=== PATIENT | female | born 1995 | race Caucasian/White ===

== ENCOUNTER 2016-10-16 10:50 | Emergency (ER) | payer OTHER ==
[2016-10-16 11:08] VITALS: BP 133/106; PULSE 79; RESP 18; TEMP 98.1; O2SAT 100
[2016-10-16] MEDS ORDERED: Sodium Chloride 0.9% 1,000 ML IV STA (11:19)
--- NOTE | 2016-10-16 11:22 | ED PDOC ---
HPI: Abdomen Time Seen by Provider: 10/16/16 11:11 Chief Complaint (Nursing): Abdominal Pain Chief Complaint (Provider): Epigastric pain History Per: Patient History/Exam Limitations: no limitations Onset/Duration Of Symptoms: Days (few days) Outside of [place] travel?: No Current Symptoms Are (Timing): Gone Now Additional Complaint(s): Pt. with epigastric pain, off and on. No specific trigger. No back pain, dyspnea, fever, weakness. No chest pain. No dysuria. No pain currently. Missed her period this month, concerned if she is preg. No pelvic pain. No nausea, vomit, diarrhea. Feels like a burning pain. Past Medical History Reviewed: Nursing Documentation, Vital Signs Vital Signs: Last Vital Signs Temp 98.1 F 10/16/16 10:54 Pulse 79 10/16/16 10:54 Resp 18 10/16/16 10:54 BP 133/106 H 10/16/16 10:54 Pulse Ox 100 10/16/16 11:26 - Medical History PMH: No Chronic Diseases - Surgical History Surgical History: No Surg Hx - Family History Family History: States: Unknown Family Hx - Immunization History Hx Tetanus Toxoid Vaccination: No Hx Influenza Vaccination: No Hx Pneumococcal Vaccination: No - Home Medications Home Medications: Ambulatory Orders Medication Instructions Recorded Cyclobenzaprine [Cyclobenzaprine 10 mg PO TID #20 tab 02/09/16 HCl] Ibuprofen [Motrin] 600 mg PO Q6 #20 tab 02/09/16 Famotidine [Pepcid] 20 mg PO DAILY PRN #6 tab 10/16/16 - Allergies Allergies/Adverse Reactions: Allergies Allergy/AdvReac Type Severity Reaction Status Date / Time blueberry Allergy RASH Verified 10/16/16 10:54 veronica Allergy RASH Uncoded 10/16/16 10:54 Review of Systems ROS Statement: Except As Marked, All Systems Reviewed And Found Negative Gastrointestinal: Positive for: Abdominal Pain Physical Exam - Reviewed Nursing Documentation Reviewed: Yes Vital Signs Reviewed: Yes - Physical Exam Appears: Positive for: Well, Non-toxic, No Acute Distress Head Exam: Positive for: ATRAUMATIC, NORMAL INSPECTION, NORMOCEPHALIC Skin: Positive for: Normal Color, Warm, DRY ENT: Positive for: Normal ENT Inspection Neck: Positive for: Normal, Painless ROM Cardiovascular/Chest: Positive for: Regular Rate, Rhythm Respiratory: Positive for: Normal Breath Sounds Gastrointestinal/Abdominal: Positive for: Bowel Sounds, Soft, Tenderness ( epigastric mild). Negative for: Distended, Guarding Back: Positive for: Normal Inspection. Negative for: L CVA Tenderness, R CVA Tenderness Extremity: Positive for: Normal ROM. Negative for: Tenderness, Pedal Edema Neurologic/Psych: Positive for: Alert, mud boss II-XII, Oriented. Negative for: Motor/Sensory Deficits - Laboratory Results Result Diagrams: 10/16/16 11:33 10/16/16 11:33 Interpretation Of Abn Labs: 11.5 wbc - ECG O2 Sat by Pulse Oximetry: 100 - Progress ED Course And Treament: 1511: Stable. AAOx3. Pain free. Tolerated PO. FU with pcp. Disposition - Clinical Impression Clinical Impression: Abdominal pain - Patient ED Disposition Is Patient to be Admitted: No Counseled Patient/Family Regarding: Studies Performed, Diagnosis, Need For Followup, Rx Given - Disposition Referrals: [facility] [Outside] - 10/19/16 Disposition: Routine/Home Disposition Time: 15:11 Condition: STABLE Additional Instructions: Return if not better in 3 days. Prescriptions: Famotidine [Pepcid] 20 mg PO DAILY PRN #6 tab PRN Reason: Pain Instructions: Acute Abdominal Pain (ED) Forms: [facility] ED School/Work Excuse
[2016-10-16 11:46] LABS: BASO # 0.1 K/uL (0.0-0.2); BASO % 0.6 % (0.0-2.0); EOS # 0.1 K/uL (0.0-0.7); EOS % 0.5 % (0.0-4.0); HEMATOCRIT 39.7 % (34.0-47.0); LYMPH # 3.8 K/uL (1.0-4.3); LYMPH % 32.9 % (20.0-40.0); MEAN CELL VOLUME 85.8 fl (81.0-99.0); MEAN CORPUSCULAR HEMOGLOBIN 28.1 pg (27.0-31.0); MEAN CORPUSCULAR HGB CONC 32.7 g/dL (33.0-37.0); MEAN PLATELET VOLUME 7.8 fl (7.2-11.7); MONO % 8.5 % (0.0-10.0); NEUT # 6.6 K/uL (1.8-7.0); NEUT % 57.5 % (50.0-75.0); RED CELL DISTRIBUTION WIDTH 13.3 % (11.5-14.5); WHITE BLOOD COUNT 11.5 K/uL (4.8-10.8)
[2016-10-16 13:26] LABS: ALB/GLOB RATIO 1.1 (1.0-2.1); ALKALINE PHOSPHATASE 69 U/L (38-126); ALT/SGPT 24 U/L (9-52); AST/SGOT 24 U/L (14-36); BILIRUBIN,TOTAL 0.4 mg/dl (0.2-1.3); BLOOD UREA NITROGEN 10 mg/dl (7-17); CALCIUM 10.2 mg/dL (8.4-10.2); CARBON DIOXIDE 22 mmol/L (22-30); CHLORIDE 104 mmol/L (98-107); GFR AFRICAN-AMERICAN > 60; GLUCOSE,RANDOM 88 mg/dL (65-105); LIPASE 91 U/L (23-300); POTASSIUM 4.2 MMOL/L (3.6-5.0); SODIUM 144 mmol/l (132-148); TOTAL PROTEIN 8.2 G/DL (6.3-8.2)
== END 2016-10-16 15:45 | disposition home or self-care (01) ==
LOC: H.ER 10:50
DX: R10.13 Epigastric pain (principal)

== ENCOUNTER 2017-04-05 01:09 | Emergency (ER) | payer SELFPAY ==
[2017-04-05 01:53] VITALS: BP 129/72; PULSE 78; RESP 18; TEMP 98.4; O2SAT 99
--- NOTE | 2017-04-05 02:05 | ED PDOC ---
HPI: Back Chief Complaint (Provider): Neck pain History Per: Patient History/Exam Limitations: no limitations Onset/Duration Of Symptoms: Other (2 weeks) Current Symptoms Are (Timing): Still Present Quality Of Discomfort: Sharp Pain Scale Rating Of: 8 Previous Symptoms: Neck Pain Associated Symptoms: None Exacerbating Factor(s): Turning, Movement Additional Complaint(s): 21 yo F w/o PMHx presents to ED w 2 week history of neck pain. Pt states it began after waking up with stiff neck roughly 2 weeks ago and has not improved. It is associated with reduced neck ROM on the right. Pt works as [employer]. Denies fevers/chills, n/v/d, chest pain, SOB, dyspnea, cough, abdominal pain, hematuria, dysuria, or myalgia. <Art Villa - Last Filed: 04/05/17 02:47> <Juventino Pagan - Last Filed: 04/05/17 05:18> Time Seen by Provider: 04/05/17 01:39 Chief Complaint (Nursing): Back Pain Past Medical History Reviewed: Historical Data, Nursing Documentation, Vital Signs Vital Signs: Last Vital Signs Temp 98.4 F 04/05/17 01:25 Pulse 78 04/05/17 01:25 Resp 18 04/05/17 01:25 BP 129/72 04/05/17 01:25 Pulse Ox 99 04/05/17 01:25 - Family History Family History: States: Unknown Family Hx - Immunization History Hx Tetanus Toxoid Vaccination: No Hx Influenza Vaccination: No Hx Pneumococcal Vaccination: No <Art Villa - Last Filed: 04/05/17 02:47> Vital Signs: Last Vital Signs Temp 98.4 F 04/05/17 01:25 Pulse 78 04/05/17 01:25 Resp 18 04/05/17 01:25 BP 129/72 04/05/17 01:25 Pulse Ox 99 04/05/17 02:50 <Juventino Pagan - Last Filed: 04/05/17 05:18> - Home Medications Home Medications: Ambulatory Orders Medication Instructions Recorded Cyclobenzaprine [Cyclobenzaprine 10 mg PO TID #20 tab 02/09/16 HCl] Ibuprofen [Motrin] 600 mg PO Q6 #20 tab 02/09/16 Famotidine [Pepcid] 20 mg PO DAILY PRN #6 tab 10/16/16 Cyclobenzaprine [Cyclobenzaprine 10 mg PO BID #15 tab 04/05/17 HCl] Ibuprofen [Motrin Tab] 600 mg PO Q6 #30 tab 04/05/17 Lidocaine 1 each TP DAILY #5 adh..patch 04/05/17 - Allergies Allergies/Adverse Reactions: Allergies Allergy/AdvReac Type Severity Reaction Status Date / Time blueberry Allergy RASH Verified 04/05/17 01:45 veronica Allergy RASH Uncoded 04/05/17 01:45 Supervising Attending Note - Attestation: I have personally seen and examined this patient.: Yes I have fully participated in the care of the patient.: Yes I have reviewed all pertinent clinical information: Yes <Juventino Pagan - Last Filed: 04/05/17 05:18> Review of Systems ROS Statement: Except As Marked, All Systems Reviewed And Found Negative (see HPI) <Art Villa - Last Filed: 04/05/17 02:47> Physical Exam - Physical Exam Appears: Positive for: Non-toxic, No Acute Distress Head Exam: Positive for: ATRAUMATIC, NORMOCEPHALIC Skin: Positive for: Normal Color, Warm, Dry Eye Exam: Positive for: EOMI, PERRL Neck: Positive for: Decreased ROM (on right), Pain On Movement Of Neck (towards right, on right) Cardiovascular/Chest: Positive for: Regular Rate, Rhythm. Negative for: Edema Respiratory: Positive for: Normal Breath Sounds. Negative for: Wheezing, Respiratory Distress Gastrointestinal/Abdominal: Positive for: Normal Exam, Soft. Negative for: Tenderness Extremity: Negative for: Calf Tenderness Neurologic/Psych: Positive for: Alert, director advanced II-XII, Oriented <Art Villa - Last Filed: 04/05/17 02:47> - ECG O2 Sat by Pulse Oximetry: 99 - Progress ED Course And Treament: 21 yo F w/o PMHx presents to ED w 2 week history of neck pain -Cyclobenzaprine 10mg PO x1 -Toradol 15mg IVP x1 Update 0220: -Pain improved -Will discharge pt -Will instruct to see PMD within 1 week <Art Villa - Last Filed: 04/05/17 02:47> Disposition - Disposition Disposition: Routine/Home Disposition Time: 02:40 <Art Villa - Last Filed: 04/05/17 02:47> <Juventino Pagan - Last Filed: 04/05/17 05:18> - Clinical Impression Clinical Impression: Muscle spasms of neck - Disposition Condition: GOOD Additional Instructions: f/u with PMD within 1-2 weeks of hospital discharge Return to ER if pain/reduced ROM have not improved within 3 days Prescriptions: Cyclobenzaprine [Cyclobenzaprine HCl] 10 mg PO BID #15 tab Ibuprofen [Motrin Tab] 600 mg PO Q6 #30 tab Lidocaine 1 each TP DAILY #5 adh..patch Forms: [employer] (Polish), [facility] ED School/Work Excuse
== END 2017-04-05 03:07 | disposition home or self-care (01) ==
LOC: H.ER 01:09
DX: M62.838 Other muscle spasm (principal)
CPT/HCPCS: 81025; 96374; 99282; J1885

== ENCOUNTER 2017-10-25 19:43 | Emergency (ER) | payer MEDICAID, OTHER ==
[2017-10-25 21:32] VITALS: BP 144/91; PULSE 82; RESP 18; TEMP 98.7; O2SAT 99
[2017-10-26] MEDS ORDERED: Sodium Chloride 0.9% 1,000 ML IV STA (00:32)
--- NOTE | 2017-10-26 00:44 | ED PDOC ---
HPI: Female Pain Time Seen by Provider: 10/25/17 23:49 Chief Complaint (Nursing): Female Genitourinary Chief Complaint (Provider): vaginal bleeding History Per: Patient History/Exam Limitations: no limitations Onset/Duration Of Symptoms: Days (2) Current Symptoms Are (Timing): Still Present Quality Of Discomfort: Cramping Additional Complaint(s): 21 y/o female presents with abdominal cramping and heavy vaginal bleeding x 2 days. Patient states this is the second time her period has been "off" schedule , and notes bleeding and cramping to be worse than her usual periods. Denies fever, headache, dizziness, chest pain, shortness of breath, palpitations, urinary symptoms, changes in bowel movements. Past Medical History Reviewed: Historical Data, Nursing Documentation, Vital Signs Vital Signs: Last Vital Signs Temp 98.7 F 10/25/17 21:30 Pulse 82 10/25/17 21:30 Resp 18 10/25/17 21:30 BP 144/91 H 10/25/17 21:30 Pulse Ox 99 10/25/17 21:30 - Medical History PMH: No Chronic Diseases - Surgical History Surgical History: No Surg Hx - Family History Family History: States: Unknown Family Hx - Immunization History Hx Tetanus Toxoid Vaccination: No Hx Influenza Vaccination: No Hx Pneumococcal Vaccination: No - Home Medications Home Medications: Ambulatory Orders Medication Instructions Recorded Cyclobenzaprine [Cyclobenzaprine 10 mg PO TID #20 tab 02/09/16 HCl] Ibuprofen [Motrin] 600 mg PO Q6 #20 tab 02/09/16 Famotidine [Pepcid] 20 mg PO DAILY PRN #6 tab 10/16/16 Cyclobenzaprine [Cyclobenzaprine 10 mg PO BID #15 tab 04/05/17 HCl] Ibuprofen [Motrin Tab] 600 mg PO Q6 #30 tab 04/05/17 Lidocaine 1 each TP DAILY #5 adh..patch 04/05/17 Naproxen [Naprosyn] 500 mg PO Q12 PRN #20 tablet 10/26/17 Nitrofurantoin Macrocrystals 100 mg PO BID #13 cap 10/26/17 [Macrobid] - Allergies Allergies/Adverse Reactions: Allergies Allergy/AdvReac Type Severity Reaction Status Date / Time blueberry Allergy RASH Verified 04/05/17 01:45 veronica Allergy RASH Uncoded 04/05/17 01:45 Review of Systems ROS Statement: Except As Marked, All Systems Reviewed And Found Negative Gastrointestinal: Positive for: Abdominal Pain Genitourinary Female: Positive for: Vaginal Bleeding, Pelvic Pain Physical Exam - Reviewed Nursing Documentation Reviewed: Yes Vital Signs Reviewed: Yes - Physical Exam Appears: Positive for: Well, Non-toxic, No Acute Distress Head Exam: Positive for: ATRAUMATIC, NORMAL INSPECTION, NORMOCEPHALIC Skin: Positive for: Normal Color Eye Exam: Positive for: Normal appearance ENT: Positive for: Normal ENT Inspection Cardiovascular/Chest: Positive for: Regular Rate, Rhythm Respiratory: Positive for: Normal Breath Sounds Gastrointestinal/Abdominal: Positive for: Bowel Sounds, Soft. Negative for: Tenderness Back: Positive for: Normal Inspection. Negative for: L CVA Tenderness, R CVA Tenderness Extremity: Positive for: Normal ROM Neurologic/Psych: Positive for: Alert, Oriented - Laboratory Results Result Diagrams: 10/26/17 01:04 10/26/17 01:04 - ECG O2 Sat by Pulse Oximetry: 99 - Progress ED Course And Treament: labs, urine, IV toradol Patient educated on findings, discharged with rx Macrobid (dose given in ED), Naproxen. Advised follow up [employer] 2-3 days. Return precautions given. Disposition - Clinical Impression Clinical Impression: Urinary tract infection, Dysmenorrhea, Menorrhagia - Patient ED Disposition Is Patient to be Admitted: No Counseled Patient/Family Regarding: Studies Performed, Diagnosis, Need For Followup, Rx Given - Disposition Disposition: Routine/Home Disposition Time: 02:54 Condition: IMPROVED Prescriptions: Naproxen [Naprosyn] 500 mg PO Q12 PRN #20 tablet PRN Reason: Pain, Moderate (4-7) Nitrofurantoin Macrocrystals [Macrobid] 100 mg PO BID #13 cap Instructions: Urinary Tract Infections in Adults, Heavy Periods, Painful Periods Forms: [facility] ED School/Work Excuse
[2017-10-26 01:10] LABS: BASO # 0.1 K/uL (0.0-0.2); BASO % 0.8 % (0.0-2.0); EOS # 0.1 K/uL (0.0-0.7); EOS % 1.2 % (0.0-4.0); HEMOGLOBIN 12.6 g/dL (12.0-16.0); LYMPH # 4.1 K/uL (1.0-4.3); LYMPH % 36.2 % (20.0-40.0); MEAN CELL VOLUME 85.6 fl (81.0-99.0); MEAN CORPUSCULAR HEMOGLOBIN 28.6 pg (27.0-31.0); MEAN CORPUSCULAR HGB CONC 33.4 g/dL (33.0-37.0); MEAN PLATELET VOLUME 7.5 fl (7.2-11.7); MONO # 0.9 K/uL (0.0-0.8); MONO % 8.3 % (0.0-10.0); NEUT # 6.1 K/uL (1.8-7.0); NEUT % 53.5 % (50.0-75.0); NRBC % 0.2 % (0.0-0.0); RBC 4.41 Mil/uL (3.80-5.20); RED CELL DISTRIBUTION WIDTH 13.4 % (11.5-14.5); WHITE BLOOD COUNT 11.3 K/uL (4.8-10.8)
[2017-10-26 01:19] LABS: ALB/GLOB RATIO 1.1 (1.0-2.1); ALT/SGPT 29 U/L (9-52); AST/SGOT 19 U/L (14-36); BLOOD UREA NITROGEN 10 mg/dl (7-17); CALCIUM 9.3 mg/dL (8.4-10.2); GFR AFRICAN-AMERICAN > 60; GFR NON-AFRICAN AMERICAN > 60
[2017-10-26 01:41] LABS: SQUAMOUS EPITHIAL 3 /hpf (0-5); URINE BACTERIA MOD (<OCC); URINE BILIRUBIN NEGATIVE (NEGATIVE); URINE BLOOD LARGE (NEGATIVE); URINE CALCIUM OXALATE CRYSTALS OCC /hpf (<OCC); URINE CLARITY CLOUDY (Clear); URINE COLOR YELLOW (YELLOW); URINE GLUCOSE (UA) NEG (Normal); URINE LEUKOCYTE ESTERASE MOD Leu/uL (Negative); URINE PROTEIN 30 mg/dL (NEGATIVE); URINE UROBILINOGEN 0.2-1.0 mg/dL (0.2-1.0)
== END 2017-10-26 03:23 | disposition home or self-care (01) ==
LOC: H.ER 19:43
DX: N39.0 Urinary tract infection, site not specified (principal); N92.0 Excessive and frequent menstruation with regular cycle; N94.6 Dysmenorrhea, unspecified
CPT/HCPCS: 80053; 81003; 81025; 85025; 87086; 87181; 96360; 99284; J1885; J7040

== ENCOUNTER 2018-06-18 06:47 | Emergency (ER) | payer MEDICAID, OTHER ==
[2018-06-18 07:20] VITALS: BP 129/87; PULSE 75; RESP 19; TEMP 94.4; O2SAT 99
[2018-06-18] MEDS ORDERED: Sodium Chloride 0.9% 1,000 ML IV STA (07:35)
[2018-06-18] MEDS ORDERED: Iohexol 240 (50 ml) PO ONE (07:35)
[2018-06-18] MEDS ORDERED: Iohexol 240 (50 ml) ONE (07:43)
[2018-06-18 08:03] LABS: BASO # 0.1 K/uL (0.0-0.2); BASO % 0.6 % (0.0-2.0); EOS % 0.6 % (0.0-4.0); LYMPH # 2.6 K/uL (1.0-4.3); LYMPH % 30.5 % (20.0-40.0); MEAN CELL VOLUME 85.3 fl (81.0-99.0); MEAN CORPUSCULAR HEMOGLOBIN 28.4 pg (27.0-31.0); MEAN CORPUSCULAR HGB CONC 33.3 g/dL (33.0-37.0); MEAN PLATELET VOLUME 7.5 fl (7.2-11.7); MONO # 0.6 K/uL (0.0-0.8); MONO % 6.7 % (0.0-10.0); NEUT # 5.2 K/uL (1.8-7.0); NEUT % 61.6 % (50.0-75.0); NRBC % 0.1 % (0.0-0.0); RBC 4.57 Mil/uL (3.80-5.20); RED CELL DISTRIBUTION WIDTH 13.2 % (11.5-14.5); WHITE BLOOD COUNT 8.5 K/uL (4.8-10.8)
[2018-06-18 08:18] LABS: ALBUMIN 3.9 g/dL (3.5-5.0); ALT/SGPT 22 U/L (9-52); AST/SGOT 26 U/L (14-36); BLOOD UREA NITROGEN 11 mg/dl (7-17); CALCIUM 9.6 mg/dL (8.4-10.2); GFR NON-AFRICAN AMERICAN > 60; LIPASE 69 U/L (23-300)
--- NOTE | 2018-06-18 09:23 | ED PDOC ---
HPI: Abdomen Time Seen by Provider: 06/18/18 07:10 Chief Complaint (Nursing): Abdominal Pain Chief Complaint (Provider): Abdominal Pain History Per: Patient History/Exam Limitations: no limitations Onset/Duration Of Symptoms: Days Outside of [place] travel?: No Current Symptoms Are (Timing): Still Present Location Of Pain/Discomfort: Diffuse Additional Complaint(s): 22 y/o female with no significant PMHx presents to the ED for evaluation of abdominal pain and vomiting, onset one week ago. Patient states she was diagnosed with a UTI two weeks ago and was started on an antibiotics. Patient states since finishing the course of antibiotics on 06/02, she has developed abdominal pain and vomiting. Patient cannot recall name of antibiotic given to her. Patient additionally states symptoms are associated with occasional di arrhea. Patient reports she is unable to sleep due to frequently getting up to vomit. Otherwise, patient denies chest pain, shortness of breath, cough, congestion, rhinorrhea, fever, chills, any new foods/drinks, dysuria and hematuria. PMD: non [facility] Provider Past Medical History Reviewed: Historical Data, Nursing Documentation, Vital Signs Vital Signs: Last Vital Signs Temp 94.4 F L 06/18/18 07:16 Pulse 75 06/18/18 07:16 Resp 19 06/18/18 07:16 BP 129/87 06/18/18 07:16 Pulse Ox 99 06/18/18 07:16 - Medical History PMH: No Chronic Diseases - Surgical History Surgical History: No Surg Hx - Family History Family History: States: Unknown Family Hx - Immunization History Hx Tetanus Toxoid Vaccination: No Hx Influenza Vaccination: No Hx Pneumococcal Vaccination: No - Home Medications Home Medications: Ambulatory Orders Medication Instructions Recorded Famotidine [Pepcid] 20 mg PO DAILY PRN #6 tab 06/18/18 Ibuprofen [Motrin] 600 mg PO TID 7 Days tab 06/18/18 Ondansetron [Zofran] 4 mg PO Q8H PRN #6 tab 06/18/18 - Allergies Allergies/Adverse Reactions: Allergies Allergy/AdvReac Type Severity Reaction Status Date / Time blueberry Allergy RASH Verified 04/05/17 01:45 veronica Allergy RASH Uncoded 04/05/17 01:45 Review of Systems ROS Statement: Except As Marked, All Systems Reviewed And Found Negative Constitutional: Negative for: Fever, Chills ENT: Negative for: Nose Discharge, Nose Congestion Cardiovascular: Negative for: Chest Pain Respiratory: Negative for: Cough, Shortness of Breath Gastrointestinal: Positive for: Vomiting, Abdominal Pain, Diarrhea Genitourinary Female: Negative for: Dysuria, Hematuria Physical Exam - Reviewed Nursing Documentation Reviewed: Yes Vital Signs Reviewed: Yes - Physical Exam Appears: Positive for: No Acute Distress Head Exam: Positive for: ATRAUMATIC, NORMOCEPHALIC Skin: Positive for: Normal Color, Warm, Dry Eye Exam: Positive for: Normal appearance Neck: Positive for: Normal, Painless ROM Cardiovascular/Chest: Positive for: Regular Rate, Rhythm. Negative for: Murmur Respiratory: Positive for: Normal Breath Sounds. Negative for: Respiratory Distress Gastrointestinal/Abdominal: Positive for: Tenderness (Diffuse abdominal tenderness) Extremity: Positive for: Normal ROM. Negative for: Deformity Neurologic/Psych: Positive for: Alert, Oriented. Negative for: Motor/Sensory Deficits - Laboratory Results Result Diagrams: 06/18/18 07:59 06/18/18 07:59 Interpretation Of Abn Labs: no acute - ECG O2 Sat by Pulse Oximetry: 99 (RA) Pulse Ox Interpretation: Normal - CT Scan/US ct Other Rad Studies (CT/US): Read By Radiologist Other Rad Interpretation: ovarian cyst - Progress ED Course And Treament: 1400: Stable. AAOx3. Pain free. Tolerated po. Medical Decision Making Medical Decision Making: Time: 734 Plan: -- CT Abd/Pelvis PO & IV Contrast -- CMP -- Lipase -- ED Urine -- ED Urine Dipstick -- CBC with Differentials -- Sodium Chloride IV 1000 mls/hr -- Iohexol 50 ml PO -- Zofran Inj 4 mg IV Time: 954 CT ABD/PELVIS RESULTS FINDINGS: LOWER THORAX: Unremarkable. LIVER: Unremarkable. No gross lesion or ductal dilatation. GALLBLADDER AND BILE DUCTS: Unremarkable. PANCREAS: Unremarkable. No gross lesion or ductal dilatation. SPLEEN: Unremarkable. ADRENALS: Unremarkable. No mass. KIDNEYS AND URETERS: Unremarkable. No hydronephrosis. No solid mass. VASCULATURE: Unremarkable. No aortic aneurysm. No aortic atherosclerotic calcification or mural plaque present. BOWEL: Unremarkable. No obstruction. No gross mural thickening. APPENDIX: Normal appendix. PERITONEUM: Small amount of free fluid in the cul de sac. LYMPH NODES: Unremarkable. No enlarged lymph nodes. BLADDER: Unremarkable. REPRODUCTIVE: 2 centimeter left ovarian cyst. BONES: No acute fracture. OTHER FINDINGS: None. IMPRESSION: 2 centimeter left ovarian cyst. Small amount of free fluid in cul-de-sac. Normal appendix. Scribe Attestation: Documented by Ryland Gonzalez, acting as a scribe for Beau Vincent MD. Provider Scribe Attestation: All medical record entries made by the Scribe were at my direction and personally dictated by me. I have reviewed the chart and agree that the record accurately reflects my personal performance of the history, physical exam, medical decision making, and the department course for this patient. I have also personally directed, reviewed, and agree with the discharge instructions and disposition. Disposition - Clinical Impression Clinical Impression: Abdominal pain, Ovarian cyst - Patient ED Disposition Is Patient to be Admitted: No Counseled Patient/Family Regarding: Studies Performed, Diagnosis, Need For Followup, Rx Given - Disposition Referrals: [facility] [Outside] - 06/20/18 Disposition: Routine/Home Disposition Time: 14:10 Condition: STABLE Additional Instructions: Return if not better in 3 days. Prescriptions: Famotidine [Pepcid] 20 mg PO DAILY PRN #6 tab PRN Reason: Pain Ibuprofen [Motrin] 600 mg PO TID 7 Days tab Ondansetron [Zofran] 4 mg PO Q8H PRN #6 tab PRN Reason: Nausea/Vomiting Instructions: Ovarian Cysts, Stomach Ache and Stomach Upset Forms: [facility] ED School/Work Excuse
[2018-06-18] MEDS ORDERED: Sodium Chloride 0.9% 50 ML IV ONE (09:35)
[2018-06-18] MEDS ORDERED: Iohexol 300 100 ML IJ ONE (09:35)
--- NOTE | 2018-06-18 09:58 | CT ---
Date of service: 06/18/2018 PROCEDURE: CT Abdomen and Pelvis with contrast HISTORY: abd pain COMPARISON: None. TECHNIQUE: Contrast dose: Radiation dose: Total exam DLP = 716.49 mGy-cm. This CT exam was performed using one or more of the following dose reduction techniques: Automated exposure control, adjustment of the mA and/or kV according to patient size, and/or use of iterative reconstruction technique. FINDINGS: LOWER THORAX: Unremarkable. LIVER: Unremarkable. No gross lesion or ductal dilatation. GALLBLADDER AND BILE DUCTS: Unremarkable. PANCREAS: Unremarkable. No gross lesion or ductal dilatation. SPLEEN: Unremarkable. ADRENALS: Unremarkable. No mass. KIDNEYS AND URETERS: Unremarkable. No hydronephrosis. No solid mass. VASCULATURE: Unremarkable. No aortic aneurysm. No aortic atherosclerotic calcification or mural plaque present. BOWEL: Unremarkable. No obstruction. No gross mural thickening. APPENDIX: Normal appendix. PERITONEUM: Small amount of free fluid in the cul de sac. LYMPH NODES: Unremarkable. No enlarged lymph nodes. BLADDER: Unremarkable. REPRODUCTIVE: 2 centimeter left ovarian cyst. BONES: No acute fracture. OTHER FINDINGS: None. IMPRESSION: 2 centimeter left ovarian cyst. Small amount of free fluid in cul-de-sac. Normal appendix.
== END 2018-06-18 14:28 | disposition home or self-care (01) ==
LOC: H.ER 06:47
DX: R10.9 Unspecified abdominal pain (principal); N83.202 Unspecified ovarian cyst, left side; Z79.899 Other long term (current) drug therapy
CPT/HCPCS: 74177; 80053; 81025; 83690; 85025; 96374; 96375; 99284; J1885; J2405; J7030; Q9966; Q9967

== ENCOUNTER 2018-07-12 16:52 | Emergency (ER) | payer MEDICAID ==
[2018-07-12 17:02] VITALS: RESP 18
[2018-07-12 18:30] LABS: BASO # 0.2 K/uL (0.0-0.2); BASO % 0.9 % (0.0-2.0); EOS # 0.1 K/uL (0.0-0.7); EOS % 0.5 % (0.0-4.0); LYMPH # 2.6 K/uL (1.0-4.3); LYMPH % 14.7 % (20.0-40.0); MEAN CELL VOLUME 85.3 fl (81.0-99.0); MEAN CORPUSCULAR HEMOGLOBIN 28.1 pg (27.0-31.0); MEAN CORPUSCULAR HGB CONC 32.9 g/dL (33.0-37.0); MEAN PLATELET VOLUME 7.6 fl (7.2-11.7); MONO # 1.1 K/uL (0.0-0.8); MONO % 6.2 % (0.0-10.0); NEUT # 13.8 K/uL (1.8-7.0); NEUT % 77.7 % (50.0-75.0); RBC 4.62 Mil/uL (3.80-5.20); RED CELL DISTRIBUTION WIDTH 13.3 % (11.5-14.5); WHITE BLOOD COUNT 17.7 K/uL (4.8-10.8)
[2018-07-12 18:40] LABS: SQUAMOUS EPITHIAL 1 /hpf (0-5); URINE BACTERIA RARE (<OCC); URINE BILIRUBIN NEGATIVE (NEGATIVE); URINE BLOOD NEGATIVE (NEGATIVE); URINE CLARITY SLIGHTY-CLOUDY (Clear); URINE COLOR YELLOW (YELLOW); URINE GLUCOSE (UA) NEG (NEGATIVE); URINE LEUKOCYTE ESTERASE SMALL Leu/uL (Negative); URINE PROTEIN NEGATIVE (NEGATIVE); URINE UROBILINOGEN 0.2-1.0 mg/dL (0.2-1.0)
[2018-07-12 19:12] LABS: ALB/GLOB RATIO 1.2 (1.0-2.1); ALBUMIN 4.4 g/dL (3.5-5.0); ALT/SGPT 19 U/L (9-52); AST/SGOT 37 U/L (14-36); BLOOD UREA NITROGEN 15 mg/dl (7-17); CALCIUM 9.8 mg/dL (8.4-10.2); GFR NON-AFRICAN AMERICAN > 60; LIPASE 99 U/L (23-300)
--- NOTE | 2018-07-12 19:18 | ED PDOC ---
HPI: Abdomen Time Seen by Provider: 07/12/18 18:05 Chief Complaint (Nursing): Abdominal Pain Chief Complaint (Provider): Right Sided flank pain History Per: Patient History/Exam Limitations: no limitations Onset/Duration Of Symptoms: Days (three), Waxing/Waning, Persistent Outside of [place] travel?: No Current Symptoms Are (Timing): Still Present Context: Other (pt dx with UTI and treated on 06/02; ) Past Medical History Vital Signs: Last Vital Signs Temp 98.3 F 07/12/18 16:59 Pulse 82 07/12/18 16:59 Resp 18 07/12/18 16:59 BP 125/77 07/12/18 16:59 Pulse Ox 100 07/12/18 16:59 - Family History Family History: States: Unknown Family Hx - Immunization History Hx Tetanus Toxoid Vaccination: No Hx Influenza Vaccination: No Hx Pneumococcal Vaccination: No - Home Medications Home Medications: Ambulatory Orders Medication Instructions Recorded Famotidine [Pepcid] 20 mg PO DAILY PRN #6 tab 06/18/18 Ibuprofen [Motrin] 600 mg PO TID 7 Days tab 06/18/18 Ondansetron [Zofran] 4 mg PO Q8H PRN #6 tab 06/18/18 - Allergies Allergies/Adverse Reactions: Allergies Allergy/AdvReac Type Severity Reaction Status Date / Time blueberry Allergy RASH Verified 07/12/18 16:59 veronica Allergy RASH Uncoded 07/12/18 16:59 - Laboratory Results Result Diagrams: 07/12/18 18:26 07/12/18 18:26 - ECG O2 Sat by Pulse Oximetry: 100 Disposition - Patient ED Disposition Is Patient to be Admitted: Transfer of Care - Disposition Disposition Time: 20:03 Condition: STABLE Forms: [employer] (Serbian)
--- NOTE | 2018-07-12 20:06 | ED PDOC ---
- Laboratory Results Result Diagrams: 07/12/18 18:26 07/12/18 18:26 - ECG O2 Sat by Pulse Oximetry: 100 Medical Decision Making Medical Decision Making: Pt endorsed to me by [employer] pending abdominal CT results FINDINGS: LUNG BASES: The lung bases appear clear. No pleural effusions are seen. LIVER: Unremarkable. GALLBLADDER AND BILE DUCTS: The gallbladder appears within normal limits. No radioopaque gallstones are seen. No biliary ductal dilatation is evident. PANCREAS: Unremarkable. SPLEEN: Unremarkable. ADRENAL GLANDS: Unremarkable. KIDNEYS, URETERS, AND BLADDER: The kidneys appear within normal limits. There is no hydronephrosis or hydroureter. No urinary calculi are seen. There appear to be cystic changes and some free fluid in the adnexal regions particularly at the right adnexal region of the pelvis. Cervix of the uterus appears prominent. STOMACH AND BOWEL: Unremarkable appearance of the stomach and bowel. No evidence of bowel obstruction. No evidence suggesting enteritis or colitis. APPENDIX: No evidence of acute appendicitis on CT examination. PERITONEUM: No free fluid. No free air. LYMPH NODES: No lymphadenopathy is evident. VASCULATURE: No evidence of abdominal aortic aneurysm. BONES: No aggressive appearing osseous lesion. No acute osseous pathology evident. IMPRESSION: Kidneys show no mass or obstruction or calculus. No suspicious mass or lymphadenopathy. Cystic changes as well as the some free fluid within the pelvis particularly the right adnexal region. Clinical correlation and correlation with ultrasound of the pelvis recommended. Electronically signed on Jul 12, 2018 7:11:12 PM EST by: Lester Zuluaga M.D., Certified by [facility], Diagnostic Radiology Pelvic U/S: History Follow up CT for Right adnexa. Comparison None available. Technique Sonographic evaluation of the Pelvis. Findings Uterus Measures 6.9 x 2.9 x 3.6 cm. Normal in size and appearance. No fibroid or other mass lesion seen. Endometrium Measures 0.6 cm in diameter. Unremarkable. Cervix No cervical abnormality identified. Right ovary Measures 5.2 x 2.9 x 5.3 cm. No solid mass. Normal flow. Simple cyst measures 3.2 x 1.6 x 2.2 cm. Left ovary Measures 2.4 x 1.7 x 3.1 cm. No solid mass. Normal flow. Free fluid Trace amount of free fluid is noted in the pelvic cul-de-sac. Other Findings None. Impression Right ovarian cyst. Trace amount of free fluid in the pelvic cul-de-sac. Otherwise, unremarkable study. Disposition - Disposition Condition: STABLE Forms: [employer] [facility] (Zimbabwean)
[2018-07-12 23:38] VITALS: BP 139/63; PULSE 75; TEMP 98.1; O2SAT 99
--- NOTE | 2018-07-13 10:28 | CT ---
Date of service: 07/12/2018 PROCEDURE: CT Abdomen and Pelvis without intravenous contrast HISTORY: r/o stones COMPARISON: 06/18/2018. TECHNIQUE: CT scan of the abdomen and pelvis was performed without administration of intravenous contrast. Oral contrast was not administered. Coronal and sagittal reformatted images were obtained. . Radiation dose: Total exam DLP = 624.71 mGy-cm. This CT exam was performed using one or more of the following dose reduction techniques: Automated exposure control, adjustment of the mA and/or kV according to patient size, and/or use of iterative reconstruction technique. FINDINGS: LOWER THORAX: The visualized lungs are clear. LIVER: Normal in size. No intrahepatic ductal dilatation. GALLBLADDER AND BILE DUCTS: No calcified gallstones. No biliary dilatation PANCREAS: Normal in size. No ductal dilatation. SPLEEN: Normal in size. ADRENALS: Normal in size. No discrete nodule. KIDNEYS AND URETERS: Normal in size without nephrolithiasis. No hydronephrosis. VASCULATURE: No aortic aneurysm. No aortic atherosclerotic calcification or mural plaque present. BOWEL: The small bowel loops are normal in caliber. The colon is normal in size. No bowel dilatation or wall thickening. No bowel obstruction. APPENDIX: Normal appendix. PERITONEUM: Small amount of free fluid in the right adnexa. No free air. LYMPH NODES: No enlarged lymph nodes. BLADDER: Well distended and grossly normal in appearance. REPRODUCTIVE: The uterus is normal in size. There is a 4.1 x 2.9 cm cyst in the right ovary. BONES: No acute fracture. OTHER FINDINGS: None. IMPRESSION: 1. No acute obstructive uropathy, nephrolithiasis or hydronephrosis. 2. 4.1 x 2.9 cm simple cyst in the right ovary. Small amount of free fluid in the right adnexa. A preliminary report was provided by [employer].
--- NOTE | 2018-07-13 12:09 | US ---
Date of service: 07/12/2018 HISTORY: evaluation of free fluid in Right adnexa on CT COMPARISON: CT abdomen pelvis 07/12/2018 an TECHNIQUE: Transabdominal FINDINGS: UTERUS: Measures 6.9 x 2.9 x 3.6 cm. Normal anteverted appearance. No fibroid or other mass lesion seen. ENDOMETRIUM: Measures 6 mm in diameter. Unremarkable. CERVIX: No cervical abnormality identified. RIGHT OVARY: Measures 5.2 x 2.9 x 5.3 cm. No solid mass. Normal flow. Right ovarian cyst 3.2 x 1.6 x 2.2 cm LEFT OVARY: Measures 2.4 x 1.7 x 3.1 cm. No solid mass. Normal flow. FREE FLUID: Trace cul-de-sac fluid present OTHER FINDINGS: None. IMPRESSION: Benign-appearingRight ovarian cyst 3.2 x 1.6 x 2.2 cm. Trace free fluid in [id number] this 22-year-old female whose LMP was 06/02/2018 findings are compatible with physiologic changes. Correlate clinically
== END 2018-07-12 23:42 | disposition home or self-care (01) ==
LOC: H.ER 16:52
DX: N83.201 Unspecified ovarian cyst, right side (principal)

== ENCOUNTER 2018-11-15 07:28 | Emergency (ER) | payer MEDICAID, OTHER ==
[2018-11-15 07:32] VITALS: BMI 31.6
--- NOTE | 2018-11-15 08:35 | ED PDOC ---
HPI: CCC, URI, Sore Throat Time Seen by Provider: 11/15/18 08:00 Chief Complaint (Nursing): ENT Problem Chief Complaint (Provider): Right ear pain History Per: Patient History/Exam Limitations: no limitations Have you had recent travel within the past 21 days to any of the following countries: [place], [place], [place] or [place]?: No Onset/Duration Of Symptoms: Days (1) Current Symptoms Are (Timing): Still Present Location Of Pain: Ear(s) Ear Symptoms: Right: Ear Pain Additional History Per: Patient Additional Complaint(s): 22yo female, otherwise well, comes to ER reporting right ear pain x 1 day. She states she was diagnosed with a URI last week, was evaluated by PMD and given "medication that looks like a big white pill." She reports taking the medicine with no relief of symptoms. She also reports nasal congestion, but otherwise denies any cough, chest pain, shortness of breath, neck pain. No additional complaints. PMD: None Past Medical History Reviewed: Historical Data, Nursing Documentation, Vital Signs Vital Signs: Last Vital Signs Temp 97.2 F L 11/15/18 07:31 Pulse 71 11/15/18 07:31 Resp 15 11/15/18 07:31 BP 124/88 11/15/18 07:31 Pulse Ox 99 11/15/18 07:31 - Medical History PMH: No Chronic Diseases - Surgical History Surgical History: No Surg Hx - Family History Family History: States: Unknown Family Hx - Immunization History Hx Tetanus Toxoid Vaccination: No Hx Influenza Vaccination: No Hx Pneumococcal Vaccination: No - Home Medications Home Medications: Ambulatory Orders Medication Instructions Recorded Famotidine [Pepcid] 20 mg PO DAILY PRN #6 tab 06/18/18 Ibuprofen [Motrin] 600 mg PO TID 7 Days tab 06/18/18 Ondansetron [Zofran] 4 mg PO Q8H PRN #6 tab 06/18/18 Ibuprofen [Motrin Tab] 600 mg PO Q6 PRN 7 Days tab 07/12/18 Ciprofloxacin [Cipro] 500 mg PO BID #14 tab 07/14/18 Amoxicillin 875 mg PO BID #20 tablet 11/15/18 Ibuprofen [Motrin] 600 mg PO Q6H PRN #20 tab 11/15/18 - Allergies Allergies/Adverse Reactions: Allergies Allergy/AdvReac Type Severity Reaction Status Date / Time blueberry Allergy RASH Verified 11/15/18 07:46 veronica Allergy RASH Uncoded 11/15/18 07:46 Review of Systems ROS Statement: Except As Marked, All Systems Reviewed And Found Negative ENT: Positive for: Ear Pain, Nose Congestion. Negative for: Ear Discharge Cardiovascular: Negative for: Chest Pain Respiratory: Negative for: Cough Physical Exam - Reviewed Nursing Documentation Reviewed: Yes Vital Signs Reviewed: Yes - Physical Exam Appears: Positive for: Non-toxic, No Acute Distress Head Exam: Positive for: ATRAUMATIC, NORMAL INSPECTION, NORMOCEPHALIC Skin: Positive for: Normal Color Eye Exam: Positive for: Normal appearance ENT: Positive for: TM Is/Are (left TM normal; right TM mild erythema, no exudates or discharge), Other (+ tenderness with right pinna pull). Negative for: Pharyngeal Erythema, Tonsillar Exudate, Tonsillar Swelling Neck: Positive for: Supple Cardiovascular/Chest: Positive for: Regular Rate, Rhythm. Negative for: Tachycardia Respiratory: Positive for: Normal Breath Sounds. Negative for: Respiratory Distress Extremity: Positive for: Normal ROM Neurological/Psych: Positive for: Awake, Alert, Normal Tone - ECG O2 Sat by Pulse Oximetry: 99 (RA) Pulse Ox Interpretation: Normal Medical Decision Making Medical Decision Making: Impression: Right ear pain Plan: -- Motrin 600mg PO 0848 Patient reports some improvement in pain. Instructed to take Motrin/Tylenol alternately for pain relief. Patient given prescription for amoxicillin, instructed on proper antibiotics use Patient informed to follow up with PMD in 2-3 days Return precautions given. ScribeAttestation: Documented byMya Arreaga, acting as a scribe for Brigid Tiwari MD. Provider ScribeAttestation: All medical record entries made by the Scribe were at my direction and personally dictated by me. I have reviewed the chart and agree that the record accurately reflects my personal performance of the history, physical exam, medical decision making, and the department course for this patient. I have also personally directed, reviewed, and agree with the discharge instructions and disposition. Disposition - Clinical Impression Clinical Impression: Otitis media - Disposition Disposition: Routine/Home Disposition Time: 08:48 Condition: STABLE Additional Instructions: FOLLOW-UP WITH PMD WITHIN 2 DAYS FOR REEVALUATION. Prescriptions: Amoxicillin 875 mg PO BID #20 tablet Ibuprofen [Motrin] 600 mg PO Q6H PRN #20 tab PRN Reason: Pain, Moderate (4-7) Instructions: Ear Infections (Otitis Media) Forms: [employer] (Tongan)
[2018-11-15 09:10] VITALS: BP 119/70; PULSE 70; RESP 18; TEMP 98; O2SAT 100
== END 2018-11-15 09:09 | disposition home or self-care (01) ==
LOC: H.ER 07:28
DX: H66.90 Otitis media, unspecified, unspecified ear (principal)